=== PATIENT | male | born 1945 | race Caucasian/White ===

== ENCOUNTER 2016-11-07 03:06 | Inpatient (IN) ==
--- NOTE | 2016-10-31 09:33 | EKG Report ---
Test Performed on : 10/31/2016 09:22:38 AM Test Reason : PAT Blood Pressure : / mmHG Vent. Rate : 071 BPM Atrial Rate : 071 BPM P-R Int : 178 ms QRS Dur : 074 ms QT Int : 390 ms P-R-T Axes : 040 012 038 degrees QTc Int : 423 ms Normal sinus rhythm. Normal ECG No previous ECGs available Nonspecific T wave abnormality III and AVL Confirmed by Moris Hinds DO ([id number]) on 11/04/2016 4:07:03 PM
[2016-10-31 10:11] LABS: MANUAL DIFF NEEDED? NO; URINE MICRO REVIEW NEEDED? NO; URINE SOURCE CLEAN CATCH
[2016-10-31 10:26] LABS: BASO% 0.4 % (0.0-0.8); EOS# 0.31 X1000 (0.0-0.7); EOS% 4.4 % (0.0-10.0); HEMATOCRIT 41.4 % (42.0-52.0); HEMOGLOBIN 13.4 g/dL (14.0-18.0); LYMPH# 1.45 X1000 (1.2-3.4); LYMPH% 20.6 % (20.5-51.1); MCH 29.3 PG (27-31); MCHC 32.4 g/dL (33-37); MCV 90.6 FL (81-99); MONO# 0.67 X1000 (0.11-0.59); MONO% 9.5 % (1.7-9.3); MPV 9.9 FL (7.4-10.4); NEUT% 65.1 % (42.2-75.2); PLT 147 X1000 (130-400); RBC 4.57 XMIL (4.7-6.1)
[2016-10-31 10:31] LABS: BILIRUBIN URINE NEGATIVE (NEGATIVE); BLOOD URINE NEGATIVE (NEGATIVE); COLOR YELLOW; GLUCOSE URINE NEGATIVE (NEGATIVE); LEUKOCYTES URINE NEGATIVE (NEGATIVE); NITRITE URINE NEGATIVE (NEGATIVE); PROTEIN URINE TRACE mg/dL (NEGATIVE); SP GRAVITY URINE 1.029; TURBIDITY URINE CLEAR (CLEAR); UR EPITHELIAL CELLS <10 /HPF (<10); URINE BACTERIA NEGATIVE /HPF; URINE RBC <10 /HPF (<10); URINE WBC <10 /HPF (<10); UROBILINOGEN URINE 3 mg/dL (NORMAL)
[2016-10-31 10:35] LABS: INR 0.97; PROTIME 10.2 Seconds (9.2-11.7)
[2016-10-31 10:56] LABS: AGAP 10; BUN 20 mg/dL (8-22); CALCIUM 8.6 mg/dL (8.8-10.2); CHLORIDE 104 mmol/L (98-107); COSMO 286; POTASSIUM 4.4 mmol/L (3.5-5.1); SODIUM 142 mmol/L (136-145); TCO2 28 mmol/L (25-35)
[2016-11-07] MEDS ORDERED: NITROGLYCERIN SL PRN (06:54)
[2016-11-07] MEDS ORDERED: COLACE ONE (08:43)
[2016-11-07] MEDS ORDERED: REGLAN ONE (08:43)
[2016-11-07] MEDS ORDERED: CELEBREX ONE (08:43)
[2016-11-07] MEDS ORDERED: LYRICA ONE (08:43)
[2016-11-07] MEDS ORDERED: LR 1,000 ML ONE (08:43)
[2016-11-07] MEDS ORDERED: PEPCID ONE (08:43)
[2016-11-07] MEDS ORDERED: KEFZOL 2 GM/D5W 2 GM/50 ML IVPB ONE (08:43)
[2016-11-07] MEDS ORDERED: AMIDATE ONE (09:35)
[2016-11-07] MEDS ORDERED: QUELICIN (DOSE) ONE (09:36)
[2016-11-07] MEDS ORDERED: NORCURON ONE (09:36)
[2016-11-07] MEDS ORDERED: OFIRMEV 1000 MG/ISOTONIC SOLN 1,000 MG/100 ML BOTTLE ONE (09:36)
[2016-11-07] MEDS ORDERED: ROBINUL ONE (09:36)
[2016-11-07] MEDS ORDERED: STERILE WATER INJ. ONE ×2 (09:36→09:39)
[2016-11-07] MEDS ORDERED: XYLOCAINE-MPF 2% ONE (09:36)
[2016-11-07] MEDS ORDERED: NAROPIN 0.5% ONE (10:06)
[2016-11-07] MEDS ORDERED: VERSED ONE (10:07)
[2016-11-07] MEDS ORDERED: DURAMORPH ONE (10:12)
[2016-11-07] MEDS ORDERED: MARCAINE 0.25% PF ONE (10:12)
[2016-11-07] MEDS ORDERED: TORADOL ONE (10:12)
[2016-11-07] MEDS ORDERED: SODIUM CHLORIDE 0.9% ONE (10:13)
[2016-11-07] MEDS ORDERED: CYKLOKAPRON 1,000 MG/NS 1,000 MG/100 ML IVPB ONE (10:13)
[2016-11-07] MEDS ORDERED: NEOSPORIN G.U. IRRIGANT ONE (10:14)
[2016-11-07] MEDS ORDERED: EXPAREL 1.3% ONE (10:14)
[2016-11-07] MEDS ORDERED: PITRESSIN ONE (11:11)
[2016-11-07 11:54] LABS: URINE MICRO REVIEW NEEDED? NO; URINE SOURCE CATH
[2016-11-07 12:03] LABS: BILIRUBIN URINE NEGATIVE (NEGATIVE); BLOOD URINE NEGATIVE (NEGATIVE); COLOR YELLOW; GLUCOSE URINE NEGATIVE (NEGATIVE); LEUKOCYTES URINE NEGATIVE (NEGATIVE); NITRITE URINE NEGATIVE (NEGATIVE); PH URINE 5.5; PROTEIN URINE NEGATIVE (NEGATIVE); SP GRAVITY URINE 1.022; TURBIDITY URINE CLEAR (CLEAR); UROBILINOGEN URINE NORMAL (NORMAL)
[2016-11-07 12:04] LABS: UR EPITHELIAL CELLS <10 /HPF (<10); URINE BACTERIA NEGATIVE /HPF; URINE RBC <10 /HPF (<10); URINE WBC <10 /HPF (<10)
[2016-11-07] MEDS ORDERED: ZOFRAN ONE (12:17)
[2016-11-07] MEDS ORDERED: NS 2,000 ML ONE (13:24)
--- NOTE | 2016-11-07 14:05 | Diag Imaging Result Doc PS360 ---
EXAM: SHOULDER 1 VIEW RIGHT INDICATION: post op TECHNIQUE: One view COMPARISON: None. FINDINGS: There has been a recent right shoulder arthroplasty. There is no evidence of periprosthetic fracture. The arthroplasty hardware is in the expected position. There is a small amount of postsurgical gas in the soft tissues around the shoulder. IMPRESSION: Satisfactory postoperative right shoulder. Electronically signed by James Lo 11/07/2016 2:02 PM
--- NOTE | 2016-11-07 14:55 | OPERATIVE NOTE ---
PROCEDURE DATE: 11/07/2016 PREOPERATIVE DIAGNOSIS: Right glenohumeral arthritis with chronic rotator cuff tear. POSTOPERATIVE DIAGNOSIS: Right glenohumeral arthritis with chronic rotator cuff tear. PROCEDURES: Right reverse shoulder arthroplasty with DePuy Delta Xtend size 12 press-fit stem, a 42+ 9 humeral cup, and a 42 eccentric Glenosphere. SURGEON: Mateusz Pendleton MD. NURSE CASE MANAGEMENT: Douglas Kong. SECOND BOATING SAFETY OFFICER: Gricelda Alvarez. ANESTHESIA: General. IV FLUIDS: 1700 mL lactated Ringer's. ESTIMATED BLOOD LOSS: 325 mL. COMPLICATIONS: None. INDICATION: The patient is a 71-year-old male with chronic history of worsening pain and discomfort in his right shoulder. Continued pain and discomfort despite appropriate nonoperative treatment. X-rays and subsequent MRI revealed a glenohumeral arthritis with chronic rotator cuff tear. Given patient's findings, recommendation to proceed with right reverse shoulder arthroplasty was offered. Risks and benefits of surgery were explained, including the risks of anesthesia, , bleeding, infection, failure to relieve pain, postoperative stiffness, nerve injury, blood clots, and other imponderables. All questions were answered. Patient and family wished to proceed with surgery. DETAILS OF OPERATION: The patient was taken to the operative room and placed supine on the operating table. Once adequate anesthesia was obtained, patient was placed in semi-[place]- chair position. The patient's right upper extremity was subsequently prepped and draped in usual sterile fashion. A standard deltopectoral incision was made with skin knife. It appeared medial and skin envelopes were developed. Hemostasis was obtained using electrocautery. The deltopectoral interval was then developed and Hardwick retractors were placed. The clavipectoral fascia then elevated. The patient did have evidence of chronic rotator cuff tear superiorly. Approximately 1 cm medial to the insertion of the subscapularis tendon, the subscapularis tendon was then released. After this had been performed, a stay suture was placed. A starting reamer was then passed in the humerus up to size 12. The intramedullary guide and proximal cutting block was pinned in position. The humeral head was then resected. A protective disk was then placed. Attention was then turned to the glenoid. Circumferential dissection then performed with a deep knife. The guide was then placed in position. Guide pin was placed. Sequential reaming was then conducted of the glenoid. The central hole was then dilated and guide pin was removed. Copious irrigation was then performed with antibiotic pulsatile lavage. A standard metaglene was then impacted in position. Three locking screws and one nonlocking screw was placed and had good fixation. The wound was copiously irrigated once again with antibiotic pulsatile lavage. A 42 eccentric Glenosphere was then placed with the eccentricity placed inferiorly. After this had been performed, attention was then turned to the proximal humerus. The intramedullary guide was in place. The proximal humerus was reamed. After this had been performed, this was removed. A size 12 press-fit stem was then impacted in position in approximately 15 degrees retroversion. It had good purchase. Sequential trial cup, 42+ 9 humeral cup, had excellent stability range of motion. The trial cup was removed and it appeared 42+ 6 humeral cup was then placed. Shoulders were carried through range of motion. Had good range of motion, good stability. After this had been performed, the wound was copiously irrigated with antibiotic pulsatile lavage. The subscapularis tendon was then repaired with #2 FiberWire. There appeared be good repair. Exparel was placed to deep soft tissue. Copious irrigation performed once again. Exparel was also placed in subcutaneous tissue. A 2-0 Vicryl was then placed followed by a running 2-0 Prolene. Benzoin and Steri-Strips were applied. Adaptic, sterile 4 x 4s, ABD pad and tape applied to the right shoulder, followed by a shoulder immobilizer. All counts were correct. Patient tolerated the procedure well and was transferred to the recovery room in stable condition. cc: Mateusz Pendleton MD
[2016-11-07] MEDS ORDERED: MORPHINE IV PRN (15:19)
[2016-11-07] MEDS ORDERED: ZOFRAN IV PRN (15:30)
[2016-11-07] MEDS ORDERED: MILK OF MAGNESIA PO PRN (15:30)
[2016-11-07] MEDS ORDERED: ZOFRAN PO PRN (15:30)
[2016-11-07] MEDS ORDERED: CYKLOKAPRON 1,000 MG in NS 100 ML IV ONE (17:00)
[2016-11-07] MEDS: OXY IR PO PRN ×2 (17:54→21:23)
[2016-11-07] MEDS: TYLENOL PO SCH ×2 (17:56→21:22)
[2016-11-07] MEDS: VITAMIN C PO SCH (17:59)
[2016-11-07] MEDS: NS 1,000 ML IV SCH ×2 (18:00→18:04)
[2016-11-07] MEDS: VITAMIN B-12 PO SCH (18:00)
[2016-11-07] MEDS: TEARISOL OPH SOLUTION BOTH EYES SCH (18:00)
[2016-11-07] MEDS: LASIX PO SCH (18:01)
[2016-11-07] MEDS: PLAVIX PO SCH (18:01)
[2016-11-07] MEDS: SUDAFED PO SCH ×2 (18:01→21:21)
[2016-11-07] MEDS: FLONASE NAS SCH (18:02)
[2016-11-07] MEDS: COREG PO SCH ×2 (18:02→21:21)
[2016-11-07] MEDS: CATAFLAM PO SCH ×2 (18:02→21:22)
[2016-11-07] MEDS: CARDURA PO SCH (18:02)
[2016-11-07] MEDS: GLUCOSAMINE 500 MG/CHONDROITIN 400 MG PO SCH (18:02)
[2016-11-07] MEDS: ASPIRIN EC PO SCH (18:03)
[2016-11-07] MEDS: PROTONIX PO SCH (18:03)
[2016-11-07] MEDS: KEFZOL 2 GM/D5W 2 GM/50 ML IVPB IV SCH (18:03)
[2016-11-07] MEDS ORDERED: KEFZOL 1 GM/D5W 1 GM/50 ML IVPB IV SCH (18:30)
[2016-11-07] MEDS ORDERED: ARICEPT PO SCH (21:00)
[2016-11-07] MEDS ORDERED: XANAX PO SCH (21:00)
[2016-11-07] MEDS ORDERED: LIPITOR PO SCH (21:00)
[2016-11-07] MEDS: PERIDEX MT SCH (21:22)
[2016-11-07] MEDS: COLACE PO SCH (21:22)
[2016-11-08] MEDS: KEFZOL 2 GM/D5W 2 GM/50 ML IVPB IV SCH (02:30)
[2016-11-08] MEDS: NS 1,000 ML IV SCH ×2 (02:31→09:17)
[2016-11-08] MEDS: TYLENOL PO SCH ×2 (04:26→09:48)
[2016-11-08] MEDS: OXY IR PO PRN ×2 (04:26→10:48)
[2016-11-08] MEDS ORDERED: XARELTO PO SCH (06:00)
[2016-11-08 06:29] LABS: HEMATOCRIT 33.6 % (42.0-52.0); HEMOGLOBIN 10.7 g/dL (14.0-18.0)
[2016-11-08] MEDS: PROTONIX PO SCH (06:52)
[2016-11-08 06:53] LABS: AGAP 11; BUN 16 mg/dL (8-22); CALCIUM 7.9 mg/dL (8.8-10.2); CHLORIDE 108 mmol/L (98-107); COSMO 287; POTASSIUM 4.3 mmol/L (3.5-5.1); SODIUM 143 mmol/L (136-145); TCO2 24 mmol/L (25-35)
--- NOTE | 2016-11-08 07:55 | PROGRESS NOTE ---
DATE: 11/08/2016 SUBJECTIVE: The patient is a pleasant, 71-year-old male who is 1 day status post right reverse shoulder arthroplasty. Patient is currently resting comfortably. He has no complaints. PHYSICAL EXAMINATION: On physical exam, his dressing is intact. He is neurovascularly intact distally. Good engineering technician strength. LABORATORY DATA: Hemoglobin is 10.7, hematocrit is 33.6. IMPRESSION: Postoperative day #1 status post right reverse shoulder arthroplasty. PLAN: At this point, we will change his dressing, discontinue his Bautista, and Hep-Lock his IV. We will plan on discharging home and we will arrange for home physical therapy. Follow up in the office in 10 to 12 days. cc: Mateusz Pendleton MD
[2016-11-08] MEDS ORDERED: NORVASC PO SCH (09:00)
[2016-11-08] MEDS ORDERED: MAG-OX PO SCH (09:00)
[2016-11-08] MEDS ORDERED: PATIENT'S OWN MED TOP SCH (09:00)
[2016-11-08] MEDS ORDERED: LOTENSIN PO SCH (09:00)
[2016-11-08] MEDS: VITAMIN B-12 PO SCH (09:48)
[2016-11-08] MEDS: PLAVIX PO SCH (09:49)
[2016-11-08] MEDS: CATAFLAM PO SCH (09:49)
[2016-11-08] MEDS: TEARISOL OPH SOLUTION BOTH EYES SCH (09:50)
[2016-11-08] MEDS: FLONASE NAS SCH (09:50)
[2016-11-08] MEDS: COLACE PO SCH (09:50)
[2016-11-08] MEDS: VITAMIN C PO SCH (09:50)
[2016-11-08] MEDS: ASPIRIN EC PO SCH (09:50)
[2016-11-08] MEDS: GLUCOSAMINE 500 MG/CHONDROITIN 400 MG PO SCH (09:50)
[2016-11-08] MEDS: COREG PO SCH (09:50)
[2016-11-08] MEDS: PERIDEX MT SCH (09:51)
[2016-11-08] MEDS: LASIX PO SCH (09:55)
[2016-11-08] MEDS: CARDURA PO SCH (09:55)
[2016-11-08] MEDS: SUDAFED PO SCH (09:55)
[2016-11-08 14:41] VITALS: BP 152/80
== END 2016-11-08 11:56 | disposition home health service (06) ==
LOC: SURHOLD 03:06 → 4N 10:42
PROVIDERS: ADMIT Orthopaedic Surgery Adult Reconstructive Orthopaedic Surgery; ATTEND Orthopaedic Surgery Adult Reconstructive Orthopaedic Surgery